=== PATIENT | male | born 1995 | race Two or more races ===

== ENCOUNTER 2018-11-15 21:43 | Emergency (ER) | payer SELFPAY ==
[~2018-11-15] VITALS: Ht 177.8 cm; Wt 68.0 kg
[2018-11-15 21:46] VITALS: BP 124/74
[2018-11-15] MEDS ORDERED: IBUPROFEN 600MG TABLET PO STA (22:48)
== END 2018-11-16 01:30 | disposition home or self-care (01) ==
LOC: ER 21:59
DX: M25.572 Pain in left ankle and joints of left foot (principal); V43.52XA Car driver injured in collision with other type car in traffic accident, initial encounter; Y93.89 Activity, other specified; Y92.488 Other paved roadways as the place of occurrence of the external cause
CPT/HCPCS: 73610; 99283